=== PATIENT | female | born 1970 ===

== ENCOUNTER 2018-02-24 16:23 | Emergency (ER) | payer OTHER ==
[~2018-02-24] VITALS: Ht 172.7 cm; Wt 156.0 kg
[2018-02-24] MEDS ORDERED: KETO10TA2 PO (19:15)
[2018-02-24] MEDS ORDERED: NORFLEX100MG PO (19:15)
== END 2018-02-24 19:39 | disposition home or self-care (01) ==
LOC: ER 16:23
DX: M25.512 Pain in left shoulder (principal); M25.552 Pain in left hip; M25.551 Pain in right hip; M54.2 Cervicalgia; M54.5 Low back pain

== ENCOUNTER 2019-09-11 09:19 | Outpatient (CLI) | payer OTHER ==
[~2019-09-11 09:19] MED LIST: KETO10TA2 PO; NORFLEX100MG PO
== END 2019-09-11 09:20 | disposition home or self-care (01) ==
LOC: MAMO-SONO 09:19 → SONOGRAMA 09:45
DX: Z12.31 Encounter for screening mammogram for malignant neoplasm of breast (principal); Z87.898 Personal history of other specified conditions; N63.11 Unspecified lump in the right breast, upper outer quadrant; N60.11 Diffuse cystic mastopathy of right breast; N60.12 Diffuse cystic mastopathy of left breast; R10.84 Generalized abdominal pain